=== PATIENT | female | born 1935 | race Caucasian/White ===

== ENCOUNTER 2022-08-12 19:48 | Emergency (ER) | payer SELFPAY ==
[~2022-08-12] VITALS: Ht 157.5 cm; Wt 72.6 kg
[2022-08-12 20:45] VITALS: BP 152/77
--- NOTE | 2022-08-12 23:20 | NUR ---
TO CHAIR B FROM LOBBY
--- NOTE | 2022-08-12 23:23 | NUR ---
C/O left hand pain x 4 days. Per reported, patient had left hand pain, redness and swelling, no fever. (Patient denies injury or bug bite)per daughter swelling has been increasing each day PMHx: DENIES
--- NOTE | 2022-08-12 23:25 | NUR ---
Dr. Foster examining patient.
[2022-08-12] MEDS ORDERED: cefTRIAXone 1,000 MG in LIDOCAINE MPF 1% 2.1 ML IM ONE (23:30)
[2022-08-12] MEDS ORDERED: KETOROLAC 30 MG/ML VIAL IM ONE (23:30)
[2022-08-12] MEDS ORDERED: LIDOCAINE MPF 1% 5 ML ONE (23:37)
[2022-08-12] MEDS ORDERED: cefTRIAXone 1,000 MG VIAL ONE (23:37)
[2022-08-13] MEDS ORDERED: ACET-8905 PO (00:04)
[2022-08-13] MEDS ORDERED: NAPR-54 PO (00:04)
[2022-08-13] MEDS ORDERED: CEPH-588 PO (00:04)
[2022-08-13 00:23] VITALS: BP 142/69
--- NOTE | 2022-08-13 00:23 | NUR ---
Patient discharged with v/s stable. Written and verbal after care instructions given and explained. Patient alert, oriented and verbalized understanding of instructions. Ambulatory with steady gait. All questions addressed prior to discharge. ID band removed. Patient advised to follow up with PMD. Rx of Naproxen, Keflex and Hydrocodone/Acetaminophen given. Patient educated on indication of medication including possible reaction and side effects. Opportunity to ask questions provided and answered.
== END 2022-08-13 00:23 | disposition home or self-care (01) ==
LOC: MED 19:48
DX: M13.842 Other specified arthritis, left hand (principal)
CPT/HCPCS: 29125; 73130; 96372; 99284; J0696; J1885; J2001